=== PATIENT | male | born 1990 | race Caucasian/White ===

== ENCOUNTER 2021-04-05 01:38 | Emergency (ER) | payer OTHER ==
[2021-04-05 01:45] VITALS: TEMP 99.3
[2021-04-05] MEDS: SODIUM CHLORIDE 0.9% 1,000 ML IV STA (02:42)
--- NOTE | 2021-04-05 02:50 | ED ---
General Adult HPI - General Chief complaint: Weakness Stated complaint: Nausea Time Seen by Provider: 04/05/21 02:17 Source: patient Mode of arrival: ambulatory - History of Present Illness Initial comments: 30 year-old male patient presents to the emergency department for evaluation after having an episode where he felt like he was going to pass out. Patient states symptoms started around 2330. States that he felt dizzy and faint. States he became nauseated and did dry heave. States he has been having a slight pressure sensation over his left chest for the last couple weeks. Reports having a headache earlier today which did resolve with oral medication. Denies any history of medical conditions or surgeries. Does not take any medications. Denies use of alcohol or drugs. Patient denies any recent rash, fever, chills, cough, shortness of breath, abdominal pain, diarrhea, constipation, back pain, numbness, tingling, dizziness, weakness, hematuria, dysuria, urinary urgency, urinary frequency, visual changes, or any other complaints. - Related Data Allergies Allergy/AdvReac Type Severity Reaction Status Date / Time Penicillins AdvReac Rash/Hives Verified 04/05/21 01:45 Review of Systems ROS Statement: Those systems with pertinent positive or pertinent negative responses have been documented in the HPI. ROS Other: All systems not noted in ROS Statement are negative. Past Medical History Past Medical History: No Reported History History of Any Multi-Drug Resistant Organisms: None Reported Past Surgical History: No Surgical Hx Reported Past Psychological History: No Psychological Hx Reported Smoking Status: Never smoker Past Alcohol Use History: None Reported Past Drug Use History: None Reported General Exam General appearance: alert, in no apparent distress, other (this well-developed, well-nourished adult male patient in no acute distress. ) Eye exam: Present: normal appearance, PERRL, EOMI. Absent: scleral icterus, conjunctival injection, periorbital swelling ENT exam: Present: normal exam, normal oropharynx, mucous membranes moist Respiratory exam: Present: normal lung sounds bilaterally. Absent: respiratory distress, wheezes, rales, rhonchi, stridor Cardiovascular Exam: Present: regular rate, normal rhythm, normal heart sounds. Absent: systolic murmur, diastolic murmur, rubs, gallop, clicks GI/Abdominal exam: Present: soft, normal bowel sounds. Absent: distended, tenderness, guarding, rebound, rigid Neurological exam: Present: alert, oriented X3, CN II-XII intact Expanded Speech: Present: fluid speech Cranial nerves: EOM's Intact: Normal, Nystagmus: Normal Motor strength exam: RUE: 5, LUE: 5, RLE: 5, LLE: 5 Psychiatric exam: Present: normal affect, normal mood Skin exam: Present: warm, dry, intact, normal color. Absent: rash Course Vital Signs 04/05/21 01:41 Temperature 99.3 F Pulse Rate 100 Respiratory 18 Rate Blood Pressure 149/84 O2 Sat by Pulse 98 Oximetry EKG Findings - EKG Comments: EKG Findings:: EKG obtained at 10 27 shows normal sinus rhythm with ventricular rate of 92, TN interval 124, QRS duration 98, QT 370, QTC 457. No evidence of ST elevation or depression. Medical Decision Making - Medical Decision Making 30-year-old male patient presented to the emergency department today for evaluation after having an episode where he felt like he was going to pass out. Patient states he was dizzy and nauseated. States he has been having slight pressure to the left chest for the last couple of weeks. Physical examination was unremarkable. He is neurologically intact with no focal deficits. EKG showed normal sinus rhythm. Labs reviewed and are unremarkable. Troponin negative, d-dimer negative. All electrolytes within normal range. Vital signs were within normal range. Chest x-ray was negative. Upon reevaluation states he is feeling better. He'll be discharged up with his primary care physician for recheck in 1-2 days. Return parameters were discussed in detail. He verbalizes understanding and agrees this plan. Case discussed with my attending Dr. Kaur. - Lab Data Result diagrams: 04/05/21 02:42 04/05/21 02:42 Lab Results 04/05/21 04/05/21 04/05/21 Range/Units 02:42 02:42 02:42 WBC 7.6 (3.8-10.6) k/uL RBC 4.83 (4.30-5.90) m/uL Hgb 15.6 (13.0-17.5) gm/dL Hct 41.8 (39.0-53.0) % MCV 86.5 (80.0-100.0) fL MCH 32.3 (25.0-35.0) pg MCHC 37.4 H (31.0-37.0) g/dL RDW 13.4 (11.5-15.5) % Plt Count 204 (150-450) k/uL MPV 6.0 Neutrophils % 80 % Lymphocytes % 13 % Monocytes % 4 % Eosinophils % 1 % Basophils % 0 % Neutrophils # 6.1 (1.3-7.7) k/uL Lymphocytes # 1.0 (1.0-4.8) k/uL Monocytes # 0.3 (0-1.0) k/uL Eosinophils # 0.1 (0-0.7) k/uL Basophils # 0.0 (0-0.2) k/uL Hyperchromasia Slight PT 10.9 (9.0-12.0) sec INR 1.0 (<1.2) APTT 23.8 (22.0-30.0) sec D-Dimer <0.17 (<0.60) mg/L FEU Sodium (137-145) mmol/L Potassium (3.5-5.1) mmol/L Chloride (98-107) mmol/L Carbon Dioxide (22-30) mmol/L Anion Gap mmol/L BUN (9-20) mg/dL Creatinine (0.66-1.25) mg/dL Est GFR (CKD-EPI)AfAm (>60 ml/min/1.73 sqM) Est GFR (CKD-EPI)NonAf (>60 ml/min/1.73 sqM) Glucose (74-99) mg/dL Plasma Lactic Acid Martinez (0.7-2.0) mmol/L Calcium (8.4-10.2) mg/dL Total Bilirubin (0.2-1.3) mg/dL AST (17-59) U/L ALT (4-49) U/L Alkaline Phosphatase (38-126) U/L Troponin I (0.000-0.034) ng/mL Total Protein (6.3-8.2) g/dL Albumin (3.5-5.0) g/dL Urine Color Light Yellow Urine Appearance Clear (Clear) Urine pH 7.0 (5.0-8.0) Ur Specific Cutler 1.003 (1.001-1.035) Urine Protein Negative (Negative) Urine Glucose (UA) Negative (Negative) Urine Ketones Negative (Negative) Urine Blood Negative (Negative) Urine Nitrite Negative (Negative) Urine Bilirubin Negative (Negative) Urine Urobilinogen <2.0 (<2.0) mg/dL Ur Leukocyte Esterase Negative (Negative) 04/05/21 04/05/21 04/05/21 Range/Units 02:42 02:42 02:42 WBC (3.8-10.6) k/uL RBC (4.30-5.90) m/uL Hgb (13.0-17.5) gm/dL Hct (39.0-53.0) % MCV (80.0-100.0) fL MCH (25.0-35.0) pg MCHC (31.0-37.0) g/dL RDW (11.5-15.5) % Plt Count (150-450) k/uL MPV Neutrophils % % Lymphocytes % % Monocytes % % Eosinophils % % Basophils % % Neutrophils # (1.3-7.7) k/uL Lymphocytes # (1.0-4.8) k/uL Monocytes # (0-1.0) k/uL Eosinophils # (0-0.7) k/uL Basophils # (0-0.2) k/uL Hyperchromasia PT (9.0-12.0) sec INR (<1.2) APTT (22.0-30.0) sec D-Dimer (<0.60) mg/L FEU Sodium 137 (137-145) mmol/L Potassium 4.0 (3.5-5.1) mmol/L Chloride 103 (98-107) mmol/L Carbon Dioxide 25 (22-30) mmol/L Anion Gap 9 mmol/L BUN 11 (9-20) mg/dL Creatinine 0.73 (0.66-1.25) mg/dL Est GFR (CKD-EPI)AfAm >90 (>60 ml/min/1.73 sqM) Est GFR (CKD-EPI)NonAf >90 (>60 ml/min/1.73 sqM) Glucose 118 H (74-99) mg/dL Plasma Lactic Acid Martinez 1.6 (0.7-2.0) mmol/L Calcium 9.4 (8.4-10.2) mg/dL Total Bilirubin 0.4 (0.2-1.3) mg/dL AST 26 (17-59) U/L ALT 17 (4-49) U/L Alkaline Phosphatase 77 (38-126) U/L Troponin I <0.012 (0.000-0.034) ng/mL Total Protein 7.2 (6.3-8.2) g/dL Albumin 4.9 (3.5-5.0) g/dL Urine Color Urine Appearance (Clear) Urine pH (5.0-8.0) Ur Specific Cutler (1.001-1.035) Urine Protein (Negative) Urine Glucose (UA) (Negative) Urine Ketones (Negative) Urine Blood (Negative) Urine Nitrite (Negative) Urine Bilirubin (Negative) Urine Urobilinogen (<2.0) mg/dL Ur Leukocyte Esterase (Negative) - Radiology Data Radiology results: report reviewed, image reviewed 2 views of the chest are obtained. Report reviewed in its entirety. Impression by Dr. Mccain shows normal chest. Disposition Clinical Impression: Near syncope Disposition: HOME SELF-CARE Condition: Good Instructions (If sedation given, give patient instructions): Near Syncope (ED) Additional Instructions: Increase fluids. Rest. Follow-up with her primary care physician for recheck in 1-2 days. Return for any new, worsening, or concerning symptoms. Is patient prescribed a controlled substance at d/c from ED?: No Referrals: Charmaine Cantrell MD [Primary Care Provider] - 1-2 days Time of Disposition: 03:42
[2021-04-05 02:51] LABS: Basophils % (A) 0 %; Eosinophils # (A) 0.1 k/uL (0-0.7); Eosinophils % (A) 1 %; HCT 41.8 % (39.0-53.0); HGB 15.6 gm/dL (13.0-17.5); Hyperchromasia Slight; Lymphocytes % (A) 13 %; MCH 32.3 pg (25.0-35.0); MCHC 37.4 g/dL (31.0-37.0); MCV 86.5 fL (80.0-100.0); Monocytes # (A) 0.3 k/uL (0-1.0); Monocytes % (A) 4 %; Neutrophils # (A) 6.1 k/uL (1.3-7.7); Neutrophils % (A) 80 %; Platelet Count 204 k/uL (150-450); RBC 4.83 m/uL (4.30-5.90); RDW 13.4 % (11.5-15.5); WBC 7.6 k/uL (3.8-10.6)
[2021-04-05 03:03] LABS: ALT 17 U/L (4-49); AST 26 U/L (17-59); African American GFR (CKD) >90 (>60 ml/min/1.73 sqM); Albumin 4.9 g/dL (3.5-5.0); Alkaline Phosphatase 77 U/L (38-126); Anion Gap 9 mmol/L; Blood Urea Nitrogen 11 mg/dL (9-20); Calcium 9.4 mg/dL (8.4-10.2); Carbon Dioxide 25 mmol/L (22-30); Chloride 103 mmol/L (98-107); Glucose 118 mg/dL (74-99); Non-African American GFR(CKD) >90 (>60 ml/min/1.73 sqM); Sodium 137 mmol/L (137-145); Total Bilirubin 0.4 mg/dL (0.2-1.3); Total Protein 7.2 g/dL (6.3-8.2)
--- NOTE | 2021-04-05 03:19 | XR ---
EXAMINATION TYPE: XR chest 2V DATE OF EXAM: 04/05/2021 COMPARISON: NONE HISTORY: Weakness TECHNIQUE: 2 view FINDINGS: Heart and mediastinum are normal. Lungs are clear. Diaphragm is normal. Bony thorax appears normal. IMPRESSION: Normal chest.
[2021-04-05 03:21] LABS: Partial Thromboplastin Time 23.8 sec (22.0-30.0); Prothrombin Time 10.9 sec (9.0-12.0)
[2021-04-05 03:33] LABS: Appearance,Urine Clear (Clear); Bilirubin,Urine Negative (Negative); Blood,Urine Negative (Negative); Color,Urine Light Yellow; Glucose,Urine (UA) Negative (Negative); Ketones,Urine Negative (Negative); Leukocyte Esterase,Urine Negative (Negative); Nitrite,Urine Negative (Negative); Protein,Urine Negative (Negative); Specific Gravity,Urine 1.003 (1.001-1.035); Urobilinogen,Urine <2.0 mg/dL (<2.0)
[2021-04-05 04:06] VITALS: BP 122/68; PULSE 77; RESP 17
== END 2021-04-05 04:00 | disposition home or self-care (01) ==
LOC: EC 01:38
DX: R55 Syncope and collapse (principal); R11.0 Nausea
CPT/HCPCS: 36415; 71046; 80053; 81003; 83605; 84484; 85025; 85379; 85610; 85730; 93005; 96360; 99284

== ENCOUNTER → 2021-09-18 | Outpatient (CLI) | payer OTHER ==
--- NOTE | 2021-09-18 15:48 | US ---
EXAMINATION TYPE: US abdomen complete DATE OF EXAM: 09/18/2021 COMPARISON: NONE CLINICAL HISTORY: R10.84 GENERALIZED ABD PAIN. Patient states having intermittent nausea and abdomina l pain. EXAM MEASUREMENTS: Liver Length: 15.4 cm. Normal less than 12.5 cm. Gallbladder Wall: 0.2 cm CBD: 0.5 cm Spleen: 12.5 x 12.7 x 5.3 cm Right Kidney: 10.8 x 4.7 x 6.3 cm Left Kidney: 11.8 x 5.4 x 5.5 cm MPV appeared large, measured 1.2 cm Pancreas: Tail obscured by overlying bowel gas Liver: wnl Gallbladder: wnl Evidence for sonographic Brito's sign: No mild splenomegaly CBD: wnl Spleen: Upper limits in size Right Kidney: No hydronephrosis or masses seen Left Kidney: No hydronephrosis or masses seen Upper IVC: wnl Abd Aorta: wnl IMPRESSION: 1.
== END | disposition home or self-care (01) ==
LOC: RADUSWWP 10:57
PROVIDERS: ATTEND Internal Medicine
DX: R11.0 Nausea (principal); R10.84 Generalized abdominal pain
CPT/HCPCS: 76700

== ENCOUNTER 2022-01-21 09:35 | Day surgery (SDC) | payer OTHER ==
[2022-01-20 12:13] VITALS: BMI 25.8
[2022-01-21] MEDS ORDERED: LACTATED RINGERS 1,000 ML IV ONE (09:47)
[2022-01-21 09:57] VITALS: RESP 16; TEMP 98.5
[2022-01-21] MEDS ORDERED: LIDOCAINE 2% INJ 20 MG/ML (2 ML VIAL) ONE (10:20)
[2022-01-21] MEDS ORDERED: PROPOFOL 10 MG/ML 20 ML VIAL IV ONE (10:20)
--- NOTE | 2022-01-21 10:33 | P.PCN ---
Date of Procedure: 01/21/22 Procedure(s) Performed: BRIEF HISTORY: Patient is a 31-year-old, pleasant, white male scheduled for an upper endoscopy as a part of evaluation of left-sided upper abdominal pain as well as nausea for the last 6 months duration. He has been on omeprazole 20 mg daily with mild relief of his symptoms. PROCEDURE PERFORMED: Esophagogastroduodenoscopy with biopsy. PREOPERATIVE DIAGNOSIS: Nausea and left-sided abdominal pain. IV sedation per anesthesia. PROCEDURE: After informed consent was obtained, the patient was brought into the endoscopy unit. IV sedation was administered by Anesthesia under continuous monitoring. Initially the Olympus GIF-140 video endoscope was inserted into the mouth. Esophagus intubated without any difficulty. It was gradually advanced into the stomach and duodenum and carefully examined. The bulb and the second part of the duodenum appeared normal. Biopsies were done from the duodenum to rule out celiac disease The scope at this time was withdrawn to the stomach, adequately insufflated with air, and upon careful examination, mucosa of the antrum, had linear areas of erythema consistent with gastritis and biopsies were done. The body, cardia and the fundus appeared normal. The scope was then withdrawn into the esophagus. Small hiatal hernia noted. The GE junction was located at 39 cm from the incisors. The esophagus appeared normal. There were no erosions or ulcerations seen and the patient tolerated the procedure well. IMPRESSION: 1. Mild antral gastritis. 2. Small hiatal hernia. RECOMMENDATIONS: The findings of this examination were discussed with the patient as well as his family. He was advised to follow with the biopsy results. He'll continue with omeprazole 20 mg daily as well as Zofran as needed and he will be seen in office in 3-4.
[2022-01-21 11:00] VITALS: BP 106/71; PULSE 88
== END 2022-01-21 11:26 | disposition home or self-care (01) ==
LOC: ORWHC2ENDO 09:35
PROVIDERS: ATTEND Internal Medicine Gastroenterology
DX: K29.70 Gastritis, unspecified, without bleeding (principal); K20.90 Esophagitis, unspecified without bleeding; K44.9 Diaphragmatic hernia without obstruction or gangrene; R11.2 Nausea with vomiting, unspecified; R10.12 Left upper quadrant pain; Z88.0 Allergy status to penicillin; Z79.899 Other long term (current) drug therapy
CPT/HCPCS: 88305; 43239; J2704; J2001

== ENCOUNTER 2022-04-10 11:11 | Day surgery (SDC) | payer OTHER ==
[2022-04-09 08:37] VITALS: BMI 26.2
[~2022-04-10 11:11] MED LIST: LACTATED RINGERS 1,000 ML IV SCH; LIDOCAINE 1% (10MG/ML) FOR IV START INTRADERMA PRN
[2022-04-10 12:36] VITALS: TEMP 97.3
[2022-04-10] MEDS ORDERED: LACTATED RINGERS 1,000 ML IV ONE (12:36)
[2022-04-10] MEDS ORDERED: PROPOFOL 10 MG/ML 20 ML VIAL IV ONE (13:23)
--- NOTE | 2022-04-10 13:40 | P.PCN ---
Date of Procedure: 04/10/22 Procedure(s) Performed: BRIEF HISTORY: Patient is a 31-year-old pleasant white scheduled for an elective colonoscopy as a part of evaluation of intermittent rectal bleeding, change in bowel habits and family history of colon cancer diagnosed in his father at age 45. PROCEDURE PERFORMED: Colonoscopy. PREOPERATIVE DIAGNOSIS: Intermittent rectal bleeding/family history of colon cancer. IV sedation per Anesthesia. PROCEDURE: After informed consent was obtained, the patient, was brought into the endoscopy unit. IV sedation was administered by Anesthesia under continuous monitoring. Digital rectal examination was normal. Initially the Olympus CF-160 flexible video colonoscope was then inserted in the rectum, gradually advanced into the cecum without any difficulty. Careful examination was performed as the scope was gradually being withdrawn. Ileocecal valve and the appendiceal orifice were visualized and appeared normal. Prep was excellent. Mucosa of the cecum, ascending colon, transverse colon, descending colon, sigmoid colon, and rectum appeared normal. Retroflexion was performed in the rectum and no lesions were seen. The patient tolerated the procedure well. IMPRESSION: Normal-appearing colon from rectum to cecum with no evidence of colorectal neoplasia . RECOMMENDATIONS: Findings of this examination were discussed with the patient as well as his family. He was advised to have a repeat colonoscopy and she is age 37 because of family history of colon cancer in his dad...
[2022-04-10 13:48] VITALS: RESP 17
[2022-04-10 14:15] VITALS: BP 127/84; PULSE 77
== END 2022-04-10 15:04 | disposition home or self-care (01) ==
LOC: ORWHC2ENDO 11:11
PROVIDERS: ATTEND Internal Medicine Gastroenterology
DX: K62.5 Hemorrhage of anus and rectum (principal); R19.4 Change in bowel habit; Z80.0 Family history of malignant neoplasm of digestive organs; Z79.899 Other long term (current) drug therapy; Z98.890 Other specified postprocedural states; Z88.0 Allergy status to penicillin
CPT/HCPCS: 45378; J2704